=== PATIENT | female | born 1990 | race Two or more races ===

== ENCOUNTER 2018-02-25 11:21 | Emergency (ER) | payer MEDICAID ==
[~2018-02-25] VITALS: Ht 157.5 cm; Wt 66.2 kg
[2018-02-25 11:40] VITALS: BP 111/75
[2018-02-25 12:45] LABS: Urine Bacteria NONE SEEN /hpf (None Seen); Urine Blood 2+ /uL (Negative); Urine Mucus FEW (None Seen); Urine Specific Gravity 1.014 (1.001-1.035); Urine WBC 1 /hpf (0 - 5)
== END 2018-02-25 13:25 | disposition home or self-care (01) ==
LOC: ER 11:21
DX: J02.9 Acute pharyngitis, unspecified (principal)
CPT/HCPCS: 81001